=== PATIENT | female | born 1950 | race Caucasian/White ===

== ENCOUNTER 2018-04-02 13:41 | Emergency (ER) | payer OTHER ==
[2018-04-02] MEDS ORDERED: TETANUS/DIPHTHERIA TOXOID [ADULT] 0.5 ML VIAL IM ONE (14:48)
== END 2018-04-02 15:00 | disposition home or self-care (01) ==
LOC: EDH 13:41
DX: S81.811A Laceration without foreign body, right lower leg, initial encounter (principal); J45.909 Unspecified asthma, uncomplicated; K21.9 Gastro-esophageal reflux disease without esophagitis; Z88.1 Allergy status to other antibiotic agents; W20.8XXA Other cause of strike by thrown, projected or falling object, initial encounter; Y93.89 Activity, other specified; Y92.89 Other specified places as the place of occurrence of the external cause; Y99.8 Other external cause status
CPT/HCPCS: 90471; 90714

== ENCOUNTER → 2020-03-24 | Outpatient (CLI) | payer MEDICARE | END | disposition home or self-care (01) | LOC: RAH 12:33 | PROVIDERS: ATTEND Physical Medicine & Rehabilitation | DX: M72.2 Plantar fascial fibromatosis (principal); M79.672 Pain in left foot | CPT/HCPCS: 73718 ==

== ENCOUNTER → 2020-04-09 | Outpatient (CLI) | payer MEDICARE | END | disposition home or self-care (01) | LOC: RAH 14:10 | PROVIDERS: ATTEND Physical Medicine & Rehabilitation | DX: M47.26 Other spondylosis with radiculopathy, lumbar region (principal); M48.061 Spinal stenosis, lumbar region without neurogenic claudication | CPT/HCPCS: 72148 ==

== ENCOUNTER 2020-04-14 16:28 | Emergency (ER) | payer MEDICARE ==
[2020-04-14] MEDS ORDERED: TETANUS/DIPHTHERIA TOXOID [ADULT] 0.5 ML VIAL IM ONE (18:09)
[2020-04-14] MEDS ORDERED: LIDOCAINE HCL 1% 20 ML VIAL ONE (18:17)
== END 2020-04-14 19:22 | disposition home or self-care (01) ==
LOC: EDH 16:28
DX: S81.819A Laceration without foreign body, unspecified lower leg, initial encounter (principal); K21.9 Gastro-esophageal reflux disease without esophagitis; J45.909 Unspecified asthma, uncomplicated; Z88.1 Allergy status to other antibiotic agents; X58.XXXA Exposure to other specified factors, initial encounter; Y93.89 Activity, other specified; Y92.89 Other specified places as the place of occurrence of the external cause; Y99.8 Other external cause status
CPT/HCPCS: 90471; 90714

== ENCOUNTER → 2020-06-24 | Outpatient (CLI) | payer MEDICARE | END | disposition home or self-care (01) | LOC: RAH 11:34 | PROVIDERS: ATTEND Physical Medicine & Rehabilitation | DX: M50.323 Other cervical disc degeneration at C6-C7 level (principal); M48.02 Spinal stenosis, cervical region | CPT/HCPCS: 72040 ==

== ENCOUNTER 2021-10-16 04:53 | Emergency (ER) | payer MEDICARE, OTHER ==
[~2021-10-16] VITALS: Ht 160 cm; Wt 68.0 kg
[2021-10-16 05:01] VITALS: BP 135/70
== END 2021-10-16 09:07 | disposition home or self-care (01) ==
LOC: EDH 04:53
DX: R51.9 Headache, unspecified (principal); T46.3X5A Adverse effect of coronary vasodilators, initial encounter; J45.909 Unspecified asthma, uncomplicated; Y92.89 Other specified places as the place of occurrence of the external cause
CPT/HCPCS: 70450

== ENCOUNTER → 2022-07-30 | Outpatient (CLI) | payer MEDICARE ==
[~2022-07-30] MED LIST: IOHEXOL 350 MG/ML 100ML INFUS..BTL IV ONE
== END | disposition home or self-care (01) ==
LOC: RAH 10:00
PROVIDERS: ATTEND Internal Medicine Cardiovascular Disease
DX: I70.0 Atherosclerosis of aorta (principal); I73.9 Peripheral vascular disease, unspecified; I44.4 Left anterior fascicular block
CPT/HCPCS: 74174; Q9967

== ENCOUNTER 2023-04-10 07:45 | Emergency (ER) | payer MEDICARE ==
[~2023-04-10] VITALS: Ht 160 cm; Wt 59.0 kg
[2023-04-10 07:48] VITALS: BP 152/63; PULSE 85; RESP 16
[2023-04-10] MEDS ORDERED: AMOX1TAB16 PO (11:17)
[2023-04-10] MEDS ORDERED: ACET-2079 PO (11:17)
[2023-04-10] MEDS ORDERED: ONDA4TAB10 PO (11:17)
[2023-04-10] MEDS: CEFTRIAXONE 1G VIAL IM ONE (11:42)
[2023-04-10] MEDS: KETOROLAC 30MG VIAL (30MG/ML) IM ONE (11:43)
[2023-04-10] MEDS: ACETAMINOPHEN WITH CODEINE 1 TAB TAB PO ONE (11:43)
== END 2023-04-10 12:12 | disposition home or self-care (01) ==
LOC: EDH 07:45
DX: K04.7 Periapical abscess without sinus (principal); J45.909 Unspecified asthma, uncomplicated
CPT/HCPCS: 99284; 96372 ×2; J0696; J1885

== ENCOUNTER → 2023-05-30 | Outpatient (CLI) | payer MEDICARE ==
[~2023-05-30] MED LIST changes: +ACET-2079 PO; +AMOX1TAB16 PO; -IOHEXOL 350 MG/ML 100ML INFUS..BTL IV ONE; +ONDA4TAB10 PO
[2023-05-30 12:36] LABS: ALBUMIN 3.5 g/dL (3.5-5.0); BILIRUBIN,TOTAL 0.3 mg/dL (0.2-1.0); CREATININE 0.8 mg/dL (0.5-1.0); POTASSIUM 4.3 mmol/L (3.5-5.1)
== END | disposition home or self-care (01) ==
LOC: LAB 08:24
PROVIDERS: ATTEND Physician Assistant
DX: I10 Essential (primary) hypertension (principal); E78.5 Hyperlipidemia, unspecified
CPT/HCPCS: 36415; 80053; 80061

== ENCOUNTER → 2023-11-25 | Outpatient (CLI) | payer MEDICARE ==
[~2023-11-25] MED LIST changes: +ONDA-243 PO; -ONDA4TAB10 PO
== END | disposition home or self-care (01) ==
LOC: SHCH 10:49
PROVIDERS: ATTEND Internal Medicine Cardiovascular Disease
DX: I65.22 Occlusion and stenosis of left carotid artery (principal)
CPT/HCPCS: 93880

== ENCOUNTER 2024-05-29 14:49 | Emergency (ER) | payer MEDICARE, OTHER ==
[~2024-05-29] VITALS: Ht 160 cm; Wt 54.0 kg
--- NOTE | 2024-05-29 14:56 | ERN ---
ED Note History of Present Illness Stated Complaint: LACERATION Chief Complaint: Laceration/Avulsion Time Seen by MD: 14:50 Dictation: PATIENT IS A 73-YEAR-OLD FEMALE HERE WITH A LACERATION/FLAP TO THE ANTERIOR YOUR RIGHT TIBIAL AREA ONSET 1 HOUR PRIOR TO ARRIVAL. SHE STATES SHE WAS WALKING WHEN A LOG ROLL DOWN HER HEEL AND HIT HER IN THE FOOT ANKLE. LAST TETANUS SHOT WAS FOR YEARS AGO. NO HISTORY OF DIABETES SHE HAS BEEN FULL WEIGHT-BEARING SINCE THE INCIDENT. Allergies: Coded Allergies: No Allergy Information Available (Verified Allergy, Unknown, 08/27/16) Home Meds Active Scripts Amoxicillin/Potassium Clav (Amox Tr-K Clv 875-125 mg Tab) 875 Mg-125 Mg Tablet, 1 EACH PO BID for 10 Days, #20 TAB 0 Refills Prov:SANJEEV VÁZQUEZ [employer] 04/10/23 Acetaminophen with Codeine (Acetaminophen-Cod #3 Tablet) 300 Mg-30 Mg Tablet, 1 EACH PO q6 hours as needed for severe pain, #15 TAB 0 Refills Prov:SANJEEV VÁZQUEZ [employer] HELPER 04/10/23 Ondansetron (Ondansetron Odt) 4 Mg Tab.rapdis, 4 MG PO Q6HPRN PRN for nausea, #15 TAB 0 Refills Prov:SANJEEV VÁZQUEZ [employer] HELPER 04/10/23 Past Medical History Past Medical History: Asthma Additional Past Medical Hx: NEWLE DX HEART BLOCKAGE Surgical History: Tonsillectomy Social History: Negative, Lives with family History: Not Applicable RN Note Reviewed/Agreed w/PFSH: Yes Review of System Dictation CONSTITUTIONAL: NEGATIVE EXCEPT FOR HPI HEAD/FACE: NEGATIVE EXCEPT FOR HPI EENT: NEGATIVE EXCEPT FOR HPI RESPIRATORY: NEGATIVE EXCEPT FOR HPI GASTROINTESTINAL/ABDOMINAL: NEGATIVE EXCEPT FOR HPI GENITOURINARY: NEGATIVE EXCEPT FOR HPI MUSCULOSKELETAL: NEGATIVE EXCEPT FOR HPI INTEGUMENTARY: NEGATIVE EXCEPT FOR HPI LACK FLAP TO DISTAL RIGHT ANTERIOR TIBIAL AREA NEUROLOGICAL/PSYCH: NEGATIVE EXCEPT FOR HPI HEMATOLOGIC/LYMPHATIC: NEGATIVE EXCEPT FOR HPI ALL SYSTEMS NEGATIVE, EXCEPT NOTED ABOVE. 13 POINT REVIEW OF SYSTEMS ASSESSED AND ALL NEGATIVE EXCEPT FOR ABOVE. Initial Vital Sign VS Vital Signs Date Time Temp Pulse Resp B/P (MAP) Pulse Ox O2 Delivery O2 Flow Rate FiO2 05/29/24 14:50 85 16 111/60 99 Room Air* 0 21 Physical Exam Dictation VITAL SIGNS REVIEWED GENERAL APPEARANCE: ALERT, ORIENTED X 3, NO ACUTE DISTRESS, WELL DEVELOPED, NOURISHED. HEAD AND FACE: NON-TRAUMATIC. EYES: PERRL, PINK CONJUNCTIVAS, EYELID NO TRAUMA, ANTERIOR CHAMBER WITH ARCUS SENILIS. EARS: PINNAS INTACT AND NO SIGNS OF TRAUMA OR ERYTHEMA EAR CANALS CLEAR AND NO DISCHARGE TM NO ERYTHEMA NOSE: NO DISCHARGE, NO BLEEDING. OROPHARYNX: MOUTH NORMAL, TONGUE PINK, PHARYNX CLEAR,NO ERYTHEMA, TONSILS NO EXUDATES, NO ABSCESSES NOTED, MUCOUS MEMBRANE MOIST NECK: SUPPLE, NON-TENDER, NO THYROMEGALY, NO MASSES, NO JVD, NO BRUITS BREAST:DEFERRED CHEST:NO TENDERNESS, NO CREPITUS, NO PARADOXICAL MOVEMENT, NO RETRACTIONS LUNGS:CLEAR, WELL-VENTILATED, SYMMETRIC, NO RALES, NO WHEEZING, NO RHONCHI, NO STRIDOR, GOOD BREATH SOUNDS BILATERALLY HEART: REGULAR RATE, REGULAR RHYTHM, NO MURMUR, NO GALLOPS VASCULAR: NO PERIPHERAL EDEMA, ABDOMEN: SOFT, POSITIVE BOWEL SOUNDS, NONDISTENDED, NO GUARDING, NONTENDER, NO REBOUND, NO MASSES NO HEPATOMEGALY, NO SPLENOMEGALY, NO FARIAS'S SIGN, NO HERNIAS. RECTAL: DEFERRED GENITAL: DEFERRED NEUROLOGICAL: NORMAL SPEECH, MOTOR FUNCTION INTACT, SENSORY FUNCTION INTACT MUSCULOSKELETAL: NECK NONTENDER, FULL RANGE OF MOTION, BACK NONTENDER, FULL RANGE OF MOTION, EXTREMITIES: NONTENDER, FULL RANGE OF MOTION SKIN: COLOR PINK, 4 X 2 CM LACERATION FLAP TO DISTAL RIGHT ANTERIOR TIBIAL AREA. NO ACTIVE BLEEDING. PATIENT FULL WEIGHT-BEARING NO ACTIVE BLEEDING LYMPHATIC: DEFERRED Results (Laboratory/Radiology) Labs Reviewed?: Yes ED Course ED Course Orders Procedure Category Date Status Time Cephalexin 500 Mg PHA 05/29/24 Complete Capsule (Keflex 500 Mg 15:00 Dermabond (Dermabond) PHA 05/29/24 Complete 15:27 Dermabond Set Up CPOE 05/29/24 Transmitted Bedside (Er) 15:28 Current Medications Medications (Trade) Dose Ordered Sig/Rigoberto Route PRN Reason Start Time Stop Time Status Last Admin Dose Admin Cephalexin (Keflex 500 MG CAPS) 1,000 mg ONCE ONCE PO 05/29/24 15:00 05/29/24 15:03 DC 05/29/24 15:22 Octyl Cyanoacrylate (Dermabond) 1 each STK-MED ONCE TP 4/15/25 15:27 05/29/24 15:28 DC 05/29/24 15:39 Vital Signs Date Time Temp Pulse Resp B/P (MAP) Pulse Ox O2 Delivery O2 Flow Rate FiO2 05/29/24 14:53 85 16 111/60 98 Room Air 0 05/29/24 14:50 85 16 111/60 99 Room Air* 0 21 Medical Decision Making MDM MEDICAL DISCHARGE MAKING BASED ON REPAIR OF LACERATION FLAP TO DISTAL RIGHT LEG. TETANUS SHOT WAS UP TO DATE PATIENT LOADED WITH KEFLEX DISCHARGED HOME WITH WOUND CARE INSTRUCTIONS Procedure Procedure Dictation: 1545/PROCEDURE EXPLAINED TO PATIENT SHE AGREED TO PROCEED 2 X 3 CM LACERATION FLAP TO DISTAL RIGHT ANTERIOR LEG CLEANED WITH WOUND CLEANSER SOME SKIN IS AVULSED AND PATIENT IS AWARE THAT COULD NOT BE REPAIRED SKIN CLEANED WITH WOUND CLEANSER FLAP WAS CLOSED WITH DERMABOND AND STERI-STRIPS SKIN TOO FRIABLE TO REPAIR SUTURES PATIENT TOLERATED WELL DX & DISP Disposition: Discharge Departure Impression: Primary Impression: Laceration of right lower leg Condition: Stable Scripts Cephalexin (Cephalexin) 500 Mg Tablet 1 TAB PO TID for 10 Days, #30 TAB 0 Refills Prov: CARMELINA MONTGOMERY NP 05/29/24 Additional Instructions: FOLLOW-UP WITH PRIMARY CARE PROVIDER IN 1 TO 2 DAYS. TAKE MEDICATIONS DIRECTED HERE IN THE EMERGENCY ROOM. OKAY TO CONTINUE HOME MEDICATIONS UNLESS OTHERWISE DISCUSSED DURING YOUR VISIT IN THE EMERGENCY ROOM TODAY. RETURN TO YOUR NEAREST EMERGENCY ROOM IF SYMPTOMS WORSEN OR IF THERE IS NO IMPROVEMENT. CALL 911 IF YOU NEED IMMEDIATE ASSISTANCE. TAKE TYLENOL OR MOTRIN KSHV-GET-HVNEBDB NEEDED AND IF NO CONTRAINDICATIONS ARE PRESENT. INCREASE OR AL HYDRATION. A WOUND CULTURE OR URINE CULTURE WAS ORDERED HERE IN THE EMERGENCY ROOM DEPARTMENT PLEASE FOLLOW-UP WITH PRIMARY CARE PROVIDER AND ADVISE THEM TO GET REPEAT PORTS FROM OUR FACILITY. IF YOU HAD ANY ANGIE WRAP/SPLINTS THAT WERE APPLIED HERE, PLEASE DO NOT REMOVE THEM UNTIL YOU SEE YOUR PRIMARY CARE OR SPECIALTY. KEEP LACERATION REPAIR TO LEG CLEAN AND DRY. NO SWIMMING, NO HOT TUBS. NO OINTMENTS NO CREAMS. FOLLOW UP WITH YOUR PRIMARY CARE DOCTOR [facility] IN THE NEXT 2-3 DAYS FOR FOLLOW UP. TAKE ANTIBIOTICS DIRECTED UNTIL GONE. Referrals: ALETHEA TANNER MD (PCP) Time of Disposition: 15:50 I have reviewed the case, and I agree with, Diagnosis and Plan CARMELINA MONTGOMERY NP May 29, 2024 14:56
[2024-05-29] MEDS: cePHALexin 500 MG CAPSULE PO ONE (15:22)
[2024-05-29] MEDS: OCTYL 2-CYANOACRYLATE 1 EACH TP ONE (15:39)
[2024-05-29] MEDS ORDERED: CEPH500T PO (15:51)
[2024-05-29 16:04] VITALS: BP 151/95; PULSE 85; RESP 16; TEMP 97.9; O2SAT 98
== END 2024-05-29 16:01 | disposition home or self-care (01) ==
LOC: EDH 14:49
DX: S81.811A Laceration without foreign body, right lower leg, initial encounter (principal); J45.909 Unspecified asthma, uncomplicated; Z90.89 Acquired absence of other organs; W22.8XXA Striking against or struck by other objects, initial encounter; Y93.89 Activity, other specified; Y92.89 Other specified places as the place of occurrence of the external cause; Y99.8 Other external cause status
CPT/HCPCS: 12001; 99283

== ENCOUNTER → 2024-12-27 | Emergency (ER) | payer OTHER ==
[~2024-12-27] MED LIST changes: -ACET-2079 PO; -AMOX1TAB16 PO; +ASPI-1197 PO; +CALC1TAB PO; +EZET10TA80 PO; +FAMO20TA8 PO; +HYDR-4060 PO; +IBUP-2076 PO; +MONT-39 PO; +MULT-1258 PO; +OMEG1CAP83 PO; -ONDA-243 PO; +PITA4TAB2 PO; +VIT1CAPS5 PO
--- NOTE | 2024-12-27 13:09 | NUR ---
CALLED OUT PT NAME AT 1309 IN ED LOBBY NO ANSWER, PT NOT IN LOBBY ASKED SECURITY , STATES HE DID NOT SEE PT LEAVE, CHECKED BATHROOM NO ONE THERE.
== END | disposition left against medical advice (07) ==
LOC: EDH 13:00
DX: S40.811A Abrasion of right upper arm, initial encounter (principal); Z53.21 Procedure and treatment not carried out due to patient leaving prior to being seen by health care provider; W55.03XA Scratched by cat, initial encounter; Y93.89 Activity, other specified; Y92.89 Other specified places as the place of occurrence of the external cause; Y99.8 Other external cause status
CPT/HCPCS: 99281